=== PATIENT | female | born 1990 | race Caucasian/White ===

== ENCOUNTER 2018-01-20 08:26 | Emergency (ER) | payer OTHER ==
[2018-01-20 09:16] LABS: ADD MAN DIFF? NO
[2018-01-20 09:18] LABS: WHITE BLOOD COUNT 10.6 10^3/ul (4.8-10.8)
[2018-01-20 09:18] LABS: BASOPHILS % 0.3 % (0.0-2.0); EOSINOPHILS # 0.1 10^3/ul (0.0-0.5); EOSINOPHILS % 0.6 % (0.0-7.0); HEMATOCRIT 40.4 % (37.0-47.0); HEMOGLOBIN 13.7 g/dl (12.0-16.0); LYMPHOCYTES # 2.2 10^3/ul (0.8-2.9); MEAN CORPUSCULAR HEMOGLOBIN 29.7 pg (29.0-33.0); MEAN CORPUSCULAR HGB CONC 33.9 g/dl (32.0-37.0); MEAN CORPUSCULAR VOLUME 87.6 fl (82.0-101.0); MEAN PLATELET VOLUME 11.8 fl (7.4-10.4); MONOCYTE # 0.6 10^3/ul (0.3-0.9); NEUTROPHIL # 7.6 10^3/ul (1.6-7.5); NEUTROPHILS % 71.8 % (39.0-77.0); PLATELET COUNT 265 10^3/UL (140-415); RED BLOOD COUNT 4.61 10^6/ul (4.20-5.40); RED CELL DISTRIBUTION WIDTH 13.2 % (11.5-14.5)
[2018-01-20 09:33] LABS: ADD UMIC YES; UR ASCORBIC ACID NEGATIVE (NEGATIVE); UR BACTERIA FEW /HPF (NONE SEEN); UR BILIRUBIN (Dip) NEGATIVE (NEGATIVE); UR BLOOD (Dip) 3+ mg/dL (NEGATIVE); UR CLARITY CLOUDY (CLEAR); UR COLOR AMBER (YELLOW); UR GLUCOSE (Dip) NEGATIVE (NEGATIVE); UR KETONES (Dip) NEGATIVE (NEGATIVE); UR LEUKOCYTE ESTERASE (Dip) TRACE Leu/ul (NEGATIVE); UR MUCUS FEW /HPF (NONE SEEN); UR NITRITE (Dip) NEGATIVE (NEGATIVE); UR RBC 5 /HPF (0-5); UR SPECIFIC GRAVITY (Dip) 1.019 (1.003-1.030); UR SQUAMOUS EPITHELIAL CELL MANY /HPF (FEW); UR TOTAL PROTEIN (Dip) 2+ mg/dl (NEGATIVE); UR UROBILINOGEN (Dip) NEGATIVE (NEGATIVE); UR WBC 16 /HPF (0-5)
== END 2018-01-20 11:30 | disposition home or self-care (01) ==
LOC: FTE 08:26
DX: O20.9 Hemorrhage in early pregnancy, unspecified (principal); O23.41 Unspecified infection of urinary tract in pregnancy, first trimester; Z3A.11 11 weeks gestation of pregnancy
CPT/HCPCS: 36415; 76801; 76817; 81001; 84702; 85025; 86900; 86901; 99284-25

== ENCOUNTER 2018-06-21 12:34 | Inpatient (IN) | payer OTHER ==
[2018-06-21] MEDS ORDERED: ACETAMINOPHEN 325 MG TAB PO (13:00)
[2018-06-21] MEDS ORDERED: ONDANSETRON 4 MG INJ IV (13:00)
[2018-06-21] MEDS: LACTATED RINGER'S 1,000 ML IV (13:13)
[2018-06-21] MEDS: MAGNESIUM SULFATE 4 GM/100 ML 100 ML IV (13:16)
[2018-06-21] MEDS: BETAMET NA PHOS/AC(6 MG/ML) 2 ML INJ SYG IM (13:26)
[2018-06-21] MEDS: AMPICILLIN 2 GM/NS (PMX) 100 ML IV (13:33)
[2018-06-21 13:42] LABS: ADD MAN DIFF? NO
[2018-06-21 13:43] LABS: ADD UMIC YES; UR ASCORBIC ACID NEGATIVE (NEGATIVE); UR BACTERIA FEW /HPF (NONE SEEN); UR BILIRUBIN (Dip) NEGATIVE (NEGATIVE); UR BLOOD (Dip) NEGATIVE (NEGATIVE); UR CLARITY CLOUDY (CLEAR); UR COLOR AMBER (YELLOW); UR GLUCOSE (Dip) NEGATIVE (NEGATIVE); UR KETONES (Dip) NEGATIVE (NEGATIVE); UR LEUKOCYTE ESTERASE (Dip) 1+ Leu/ul (NEGATIVE); UR NITRITE (Dip) NEGATIVE (NEGATIVE); UR RBC 4 /HPF (0-5); UR SPECIFIC GRAVITY (Dip) 1.021 (1.003-1.030); UR SQUAMOUS EPITHELIAL CELL FEW /HPF (FEW); UR TOTAL PROTEIN (Dip) 1+ mg/dl (NEGATIVE); UR UROBILINOGEN (Dip) NEGATIVE (NEGATIVE); UR WBC 93 /HPF (0-5)
[2018-06-21] MEDS: MAGNESIUM SULFATE 20 GM/500 ML 500 ML IV ×2 (13:47→23:04)
[2018-06-21 13:49] LABS: BASOPHILS % 0.2 % (0.0-2.0); EOSINOPHILS % 0.1 % (0.0-7.0); HEMATOCRIT 35.3 % (37.0-47.0); LYMPHOCYTES # 1.3 10^3/ul (0.8-2.9); LYMPHOCYTES % 6.5 % (15.0-51.0); MEAN CORPUSCULAR HEMOGLOBIN 30.8 pg (29.0-33.0); MEAN CORPUSCULAR VOLUME 90.5 fl (82.0-101.0); MEAN PLATELET VOLUME 12.8 fl (7.4-10.4); MONOCYTE # 1.3 10^3/ul (0.3-0.9); MONOCYTES % 6.5 % (0.0-11.0); NEUTROPHIL # 16.8 10^3/ul (1.6-7.5); NEUTROPHILS % 86.3 % (39.0-77.0); PLATELET COUNT 255 10^3/UL (140-415); RED CELL DISTRIBUTION WIDTH 13.8 % (11.5-14.5)
[2018-06-21 13:49] LABS: WHITE BLOOD COUNT 19.4 10^3/ul (4.8-10.8)
[2018-06-21 13:53] LABS: INR 0.82; PARTIAL THROMBOPLASTIN TIME 29.6 Sec (23.0-35.0); PROTIME 11.4 Sec (11.9-14.9); PT RATIO 0.9
[2018-06-21 14:06] LABS: ALANINE AMINOTRANSFERASE 16 IU/L (13-69); ALBUMIN 3.9 g/dl (3.3-4.9); ALBUMIN/GLOBULIN RATIO 1.14; ALKALINE PHOSPHATASE 165 IU/L (42-121); ANION GAP 12 (5-13); ASPARTATE AMINO TRANSFERASE 25 IU/L (15-46); BILIRUBIN,INDIRECT 0.4 mg/dl (0-1.1); BILIRUBIN,TOTAL 0.4 mg/dl (0.2-1.3); BLOOD UREA NITROGEN 10 mg/dl (7-20); CALCIUM 9.8 mg/dl (8.4-10.2); CARBON DIOXIDE 24 mmol/L (21-31); CHLORIDE 100 mmol/L (97-110); CREATININE 0.44 mg/dl (0.44-1.00); Estimated GFR > 60 mL/min (>60); GLUCOSE 101 mg/dl (70-220); POTASSIUM 3.7 mmol/L (3.5-5.1); SODIUM 136 mmol/L (135-144); TOTAL PROTEIN 7.3 g/dl (6.1-8.1)
[2018-06-21] MEDS: BUTORPHANOL 2 MG INJ IV ×2 (14:25→16:39)
[2018-06-21 14:44] LABS: HEPATITIS B SURFACE ANTIGEN NEGATIVE (NEGATIVE)
[2018-06-21] MEDS ORDERED: AMPICILLIN 1 GM/NS (PMX) 50 ML IV (17:00)
[2018-06-21] MEDS ORDERED: CARBOPROST 250 MCG INJ IM (18:30)
[2018-06-21] MEDS ORDERED: OXYTOCIN 30 UNITS/LR 500 ML IV (18:30)
[2018-06-21] MEDS ORDERED: LIDOCAINE 1% (MPF) 30 ML INJ INJ (18:30)
[2018-06-21] MEDS ORDERED: IBUPROFEN 600 MG TAB PO (18:30)
[2018-06-21] MEDS ORDERED: MISOPROSTOL 200 MCG TAB PR (18:30)
[2018-06-21] MEDS: SOD CHLORIDE 0.9% 1,000 ML IV (18:47)
[2018-06-21] MEDS ORDERED: FENTAnyl 2MCG/ML-ROPIV 0.2% 100 ML (18:48)
[2018-06-21] MEDS: CEFTRIAXONE 1 GM/50 ML (PMX) 50 ML IVPB (18:58)
[2018-06-21] MEDS ORDERED: NALOXONE (0.4 MG/ML) INJ IV (19:30)
[2018-06-21 19:35] LABS: MAGNESIUM 5.3 mg/dl (1.7-2.5)
[2018-06-21] MEDS: FENTAnyl 2MCG/ML-ROPIV 0.2% 100 ML BAG EPI (20:17)
[2018-06-21] MEDS ORDERED: MINERAL OIL LIGHT 10 ML VIAL TOP (20:30)
[2018-06-22] MEDS: BETAMET NA PHOS/AC(6 MG/ML) 2 ML INJ SYG IM (01:35)
[2018-06-22 02:12] LABS: MAGNESIUM 6.6 mg/dl (1.7-2.5)
[2018-06-22] MEDS: FENTAnyl 2MCG/ML-ROPIV 0.2% 100 ML BAG EPI ×3 (02:45→18:50)
[2018-06-22] MEDS: LACTATED RINGER'S 1,000 ML IV ×3 (04:45→23:52)
[2018-06-22 07:19] LABS: MAGNESIUM 5.6 mg/dl (1.7-2.5)
[2018-06-22] MEDS: PRENATAL VITAMIN PO (09:36)
[2018-06-22] MEDS: FERROUS SULFATE (EC) 325 MG TAB PO (09:36)
[2018-06-22 12:56] LABS: MAGNESIUM 5.3 mg/dl (1.7-2.5)
[2018-06-22] MEDS: SOD CHLORIDE 0.9% 1,000 ML IV ×2 (14:13→21:10)
[2018-06-22 16:04] LABS: RAPID PLASMA REAGIN NONREACTIVE (NR)
[2018-06-22] MEDS: MAGNESIUM SULFATE 20 GM/500 ML 500 ML IV (16:05)
[2018-06-22] MEDS: CEFTRIAXONE 1 GM/50 ML (PMX) 50 ML IVPB (18:40)
[2018-06-22 19:40] LABS: MAGNESIUM 5.1 mg/dl (1.7-2.5)
[2018-06-23 01:19] LABS: MAGNESIUM 5.2 mg/dl (1.7-2.5)
[2018-06-23] MEDS: FENTAnyl 2MCG/ML-ROPIV 0.2% 100 ML BAG EPI ×3 (03:44→17:45)
[2018-06-23 07:28] LABS: MAGNESIUM 5.1 mg/dl (1.7-2.5)
[2018-06-23] MEDS: PRENATAL VITAMIN PO (09:01)
[2018-06-23] MEDS: LACTATED RINGER'S 1,000 ML IV (09:01)
[2018-06-23] MEDS: FERROUS SULFATE (EC) 325 MG TAB PO (09:01)
[2018-06-23] MEDS: MAGNESIUM SULFATE 20 GM/500 ML 500 ML IV (11:04)
[2018-06-23 13:10] LABS: MAGNESIUM 5.2 mg/dl (1.7-2.5)
[2018-06-23] MEDS: SOD CHLORIDE 0.9% 1,000 ML IV (17:41)
[2018-06-23] MEDS: CEFTRIAXONE 1 GM/50 ML (PMX) 50 ML IVPB (18:18)
[2018-06-23 20:19] LABS: MAGNESIUM 5.1 mg/dl (1.7-2.5)
[2018-06-23] MEDS: OXYTOCIN 30 UNITS/LR 500 ML IV ×2 (21:07→21:09)
[2018-06-23] MEDS: METHYLERGONOVINE 0.2 MG INJ IM (21:08)
[2018-06-23] MEDS: LACTATED RINGER'S 1,000 ML IV* (23:51)
[2018-06-23] MEDS ORDERED: IBUPROFEN 600 MG TAB (23:59)
[2018-06-24] MEDS ORDERED: OXYTOCIN 30 UNITS/LR 500 ML IV
[2018-06-24] MEDS ORDERED: METHYLERGONOVINE 0.2 MG INJ IM
[2018-06-24] MEDS ORDERED: WITCH HAZEL/GLYCERIN PAD PR
[2018-06-24] MEDS ORDERED: BENZOCAINE 20% 56 ML SPRAY TOP
[2018-06-24] MEDS ORDERED: DIBUCAINE 1% 30 GM OINT TOP
[2018-06-24] MEDS ORDERED: ACETAMINOPHEN 325 MG TAB PO
[2018-06-24] MEDS ORDERED: MISOPROSTOL 200 MCG TAB PR
[2018-06-24] MEDS ORDERED: CARBOPROST 250 MCG INJ IM
[2018-06-24] MEDS ORDERED: HYDROCODONE/APAP (5/325) TAB PO
[2018-06-24] MEDS: IBUPROFEN 600 MG TAB PO ×4 (00:15→17:40)
[2018-06-24 06:54] LABS: ABNORMAL IP MESSAGE 1; HEMATOCRIT 27.9 % (37.0-47.0); HEMOGLOBIN 9.2 g/dl (12.0-16.0); MEAN CORPUSCULAR HEMOGLOBIN 30.5 pg (29.0-33.0); MEAN CORPUSCULAR VOLUME 92.4 fl (82.0-101.0); MEAN PLATELET VOLUME 13.2 fl (7.4-10.4); NUCLEATED RED BLOOD CELLS% 0.2 /100WBC (0.0-0.0); PLATELET COUNT 128 10^3/UL (140-415); RED BLOOD COUNT 3.02 10^6/ul (4.20-5.40); RED CELL DISTRIBUTION WIDTH 14.1 % (11.5-14.5)
[2018-06-24 07:00] LABS: ADD MAN DIFF? YES; POSITIVE DIFF @See below
[2018-06-24] MEDS: LACTATED RINGER'S 1,000 ML IV* (07:51)
[2018-06-24 08:56] LABS: BAND NEUTROPHILS #M 3.9 10^3/ul (0.0-0.6); BAND NEUTROPHILS % (M) 19 % (0-4); GIANT THROMBO% (M) 1 % (0-0); HYPOCHROMASIA 1+ (0-0); LYMPHOCYTES #M 0.8 10^3/ul (0.8-2.9); LYMPHOCYTES % (M) 4 % (15-51); MONOCYTE #M 0.4 10^3/ul (0.3-0.9); MONOCYTES % (M) 2 % (0-11); MYELOCYTES #M 0.2 10^3/ul (0.0-0.0); MYELOCYTES % (M) 1 % (0-0); PLATELET ESTIMATE DECREASED; PLATELET MORPHOLOGY COMMENT @See below; SEG NEUT #M 16.4 10^3/ul (1.6-7.5); SEGMENTED NEUTROPHILS (M) % 74 % (39-77)
[2018-06-24] MEDS: SENNA/DOCUSATE NA (8.6MG/50MG) TAB PO ×2 (09:22→22:55)
[2018-06-24] MEDS: INFLUENZA VIRUS VACCINE 0.5 ML (DISPENSING) IM* (09:22)
[2018-06-24] MEDS: FERROUS SULFATE (EC) 325 MG TAB PO (22:55)
[2018-06-25] MEDS: IBUPROFEN 600 MG TAB PO ×4 (06:56→18:30)
[2018-06-25] MEDS: FERROUS SULFATE (EC) 325 MG TAB PO ×3 (09:14→22:19)
[2018-06-25] MEDS: SENNA/DOCUSATE NA (8.6MG/50MG) TAB PO ×2 (09:14→22:20)
[2018-06-25 09:40] LABS: WHITE BLOOD COUNT 16.7 10^3/ul (4.8-10.8)
[2018-06-25 09:40] LABS: ABNORMAL IP MESSAGE 1; HEMOGLOBIN 9.3 g/dl (12.0-16.0); MEAN CORPUSCULAR HGB CONC 32.1 g/dl (32.0-37.0); MEAN CORPUSCULAR VOLUME 93.5 fl (82.0-101.0); MEAN PLATELET VOLUME 12.9 fl (7.4-10.4); NUCLEATED RED BLOOD CELLS% 0.8 /100WBC (0.0-0.0); PLATELET COUNT 203 10^3/UL (140-415); RED CELL DISTRIBUTION WIDTH 13.8 % (11.5-14.5)
[2018-06-25 09:42] LABS: ADD MAN DIFF? YES; POSITIVE DIFF @See below
[2018-06-25 10:41] LABS: ANISOCYTOSIS 1+ (0-0); BAND NEUTROPHILS #M 0.3 10^3/ul (0.0-0.6); BAND NEUTROPHILS % (M) 2 % (0-4); EOSINOPHILS % (M) 1 % (0-7); ERYTHROBLAST% (NRBC) (M) 4 % (0-0); GIANT THROMBO% (M) 3 % (0-0); LYMPHOCYTES #M 2.6 10^3/ul (0.8-2.9); LYMPHOCYTES % (M) 16 % (15-51); MONOCYTE #M 1.6 10^3/ul (0.3-0.9); MONOCYTES % (M) 10 % (0-11); MYELOCYTES #M 0.1 10^3/ul (0.0-0.0); MYELOCYTES % (M) 1 % (0-0); PLATELET ESTIMATE NORMAL; PLATELET MORPHOLOGY COMMENT @See below; SEG NEUT #M 11.7 10^3/ul (1.6-7.5); SEGMENTED NEUTROPHILS (M) % 70 % (39-77); SMUDGE%M 3 % (0-0)
[2018-06-26] MEDS: IBUPROFEN 600 MG TAB PO ×3 (00:50→12:34)
[2018-06-26] MEDS: SENNA/DOCUSATE NA (8.6MG/50MG) TAB PO (09:00)
[2018-06-26 09:06] LABS: ADD MAN DIFF? NO
[2018-06-26 09:14] LABS: WHITE BLOOD COUNT 13.5 10^3/ul (4.8-10.8)
[2018-06-26 09:14] LABS: ABNORMAL IP MESSAGE 1; BASOPHIL # 0.1 10^3/ul (0.0-0.1); BASOPHILS % 0.5 % (0.0-2.0); EOSINOPHILS # 0.1 10^3/ul (0.0-0.5); HEMOGLOBIN 9.6 g/dl (12.0-16.0); LYMPHOCYTES # 2.2 10^3/ul (0.8-2.9); LYMPHOCYTES % 16.6 % (15.0-51.0); MEAN CORPUSCULAR HEMOGLOBIN 29.9 pg (29.0-33.0); MEAN CORPUSCULAR VOLUME 93.5 fl (82.0-101.0); MEAN PLATELET VOLUME 12.7 fl (7.4-10.4); MONOCYTE # 0.9 10^3/ul (0.3-0.9); MONOCYTES % 6.8 % (0.0-11.0); NEUTROPHIL # 8.7 10^3/ul (1.6-7.5); NEUTROPHILS % 64.6 % (39.0-77.0); NUCLEATED RED BLOOD CELLS # 0.1 10^3/ul (0.0-0.0); NUCLEATED RED BLOOD CELLS% 0.7 /100WBC (0.0-0.0); PLATELET COUNT 219 10^3/UL (140-415); RED BLOOD COUNT 3.21 10^6/ul (4.20-5.40); RED CELL DISTRIBUTION WIDTH 13.3 % (11.5-14.5)
[2018-06-26 09:15] LABS: POSITIVE DIFF @See below
[2018-06-26] MEDS: FERROUS SULFATE (EC) 325 MG TAB PO ×2 (09:32→12:34)
[2018-06-26] MEDS: DIPHTH/TET/ACEL PERTUSS (ADULT) 0.5 ML VIAL IM* (12:34)
[2018-06-26 12:55] LABS: BAND NEUTROPHILS #M 1.3 10^3/ul (0.0-0.6); BAND NEUTROPHILS % (M) 10 % (0-4); EOSINOPHILS % (M) 3 % (0-7); GIANT THROMBO% (M) 1 % (0-0); LYMPHOCYTES #M 3.1 10^3/ul (0.8-2.9); LYMPHOCYTES % (M) 23 % (15-51); METAMYELOCYTES #M 0.4 10^3/ul (0.0-0.0); METAMYELOCYTES %M 3 % (0-0); MONOCYTE #M 0.8 10^3/ul (0.3-0.9); MONOCYTES % (M) 6 % (0-11); MYELOCYTES #M 0.6 10^3/ul (0.0-0.0); MYELOCYTES % (M) 5 % (0-0); PLATELET ESTIMATE NORMAL; POLYCHROMASIA 1+ (0-0); PROMYELOCYTES #M 0.2 10^3/ul (0-0); PROMYELOCYTES % (M) 2 % (0-0); SEG NEUT #M 6.7 10^3/ul (1.6-7.5); SEGMENTED NEUTROPHILS (M) % 48 % (39-77); SMUDGE%M 1 % (0-0); SPHEROCYTES 1+ (0-0); TARGET CELLS 1+ (0-0)
== END 2018-06-26 15:35 | disposition home or self-care (01) | DRG 807 ==
LOC: OBT 12:34 → PP1 06-23 23:39 → L-D 12:36 → OBT 13:00 → L-D 13:02
PROC: 10E0XZZ Delivery of Products of Conception, External Approach (ICD-10-PCS; principal; 2018-06-24)
DX: O60.14X0 Preterm labor third trimester with preterm delivery third trimester, not applicable or unspecified (principal); Z37.0 Single live birth; Z3A.34 34 weeks gestation of pregnancy
CPT/HCPCS: 36415; 62319; 76815; 80053; 81001; 83735; 85025; 85610; 85730; 86592; 86850; 86900; 86901; 87086; 87340; 88307; 90686; 99464